=== PATIENT | female | born 1945 | race Caucasian/White ===

== ENCOUNTER 2019-04-09 07:29 | Day surgery (SDC) | payer MEDICARE, BC ==
[~2019-04-09 07:29] MED LIST: Midazolam 1 MG/ML 2 ML SDV ONE; fentaNYL 100 MCG/2 ML SDV ONE
[2019-04-09] MEDS ORDERED: fentaNYL 100 MCG/2 ML SDV IV ONE ×3 (07:30→08:36)
[2019-04-09] MEDS ORDERED: Midazolam 1 MG/ML 2 ML SDV IV ONE ×6 (07:30→08:39)
[2019-04-09] MEDS ORDERED: Dextrose 5%-0.45% NaCl 1,000 ML IV SCH (07:45)
[2019-04-09 11:37] VITALS: BP 140/70; PULSE 67
--- NOTE | 2019-04-09 14:25 | OR ---
DATE: 04/09/2019 PREOPERATIVE DIAGNOSES: Screening colonoscopy and positive Cologuard test. POSTOPERATIVE DIAGNOSES: Screening colonoscopy and positive Cologuard test. PROCEDURE: Total colonoscopy. ANESTHESIA: Conscious sedation. SPECIMEN: None. OPERATIVE FINDINGS: Moderate sigmoid diverticulosis, otherwise normal. RECOMMENDATION: Followup screening colonoscopy in 10 years; however, the patient will be 83 at that time, so most likely this should be for just symptoms only. PROCEDURE IN DETAIL: After adequate preparation, a colonoscope was inserted into the rectum. This was easily passed all the way to the cecum. Confirmation of the cecum was made by visualization of the ileocecal valve and the light shining through the right lower quadrant. A photograph of the valve was taken. The bowel prep was good. On withdrawal of the scope, the only abnormality noted was moderate sigmoid diverticulosis. Anal and rectal examination were normal. Air was suctioned from the colon, and the scope removed. [facility] /[id number]
== END 2019-04-09 10:30 | disposition home or self-care (01) ==
LOC: DL.ENDO 07:29
PROVIDERS: ATTEND Surgery
DX: R19.5 Other fecal abnormalities (principal); K57.30 Diverticulosis of large intestine without perforation or abscess without bleeding
CPT/HCPCS: G0121; J2250; J3010; J7042

== ENCOUNTER 2021-11-02 07:34 | Day surgery (SDC) | payer MEDICARE, BC ==
[~2021-11-02 07:34] MED LIST changes: +Acetaminophen 325 MG Tab PO PRN; +Acetaminophen/Codeine 300-30 MG Tab PO PRN; +Cataract Ophth Solution EYELF ONE; -Midazolam 1 MG/ML 2 ML SDV ONE; +Moxifloxacin 0.5% Ophth Soln 3 ML Bottle EYELF ONE; +Ondansetron 4 MG/2 ML SDV IVPUSH PRN; +Phenylephrine 10% Ophth Soln 5 ML Bot EYELF ONE; +Povidone-Iodine 5% Sterile Ophth Soln 30 ML Bottle EYELF ONE; +Proparacaine 0.5% Ophth Soln 15 ML Bottle EYELF ONE; +Timolol Maleate 0.5% Ophth Soln 5 ML Bottle EYELF ONE; +Tropicamide 1% Ophth Soln 15 ML Bottle EYELF ONE; -fentaNYL 100 MCG/2 ML SDV ONE
[2021-11-02] MEDS ORDERED: Midazolam 1 MG/ML 2 ML SDV IV ONE (07:35)
[2021-11-02] MEDS ORDERED: Dexamethasone 4 MG/ML SDV IV ONE (07:35)
[2021-11-02] MEDS ORDERED: Sodium Chloride 0.9% 10 ML Syringe IV ONE (07:35)
[2021-11-02] MEDS ORDERED: Tetracaine HCl/PF 0.5% 4 ML Bottle EYELF ONE (09:30)
[2021-11-02] MEDS ORDERED: Povidone-Iodine 5% Sterile Ophth Soln 30 ML Bottle EYELF ONE (09:30)
[2021-11-02] MEDS ORDERED: Lidocaine 1% 30 ML SDV ONE (09:30)
[2021-11-02] MEDS ORDERED: Apraclonidine 0.5% Ophth Soln 5 ML Bot EYELF ONE (09:31)
[2021-11-02] MEDS ORDERED: Diclofenac Sodium 0.1% Ophth Soln 5 ML Bottle EYELF ONE (09:31)
[2021-11-02] MEDS ORDERED: Dexamethasone/Neomycin/Polymyxin B Ophth Oint 3.5 GM Tube EYELF ONE (09:31)
[2021-11-02] MEDS ORDERED: Balanced Salt Solution Ophth Irrig 15 ML Bottle EYELF ONE (09:32)
[2021-11-02] MEDS ORDERED: Chondroitin Sulfate/Hyaluronate Sodium Ophth Inj 0.5 ML Syringe IOCULAR ONE ×2 (09:33)
[2021-11-02] MEDS ORDERED: Vancomycin 500 MG SDV EYELF ONE (09:33)
[2021-11-02] MEDS ORDERED: Dexamethasone 4 MG/ML SDV IOCULAR ONE (09:34)
[2021-11-02 12:46] VITALS: BP 133/84; PULSE 66
[2021-11-02] MEDS ORDERED: Sodium Chloride 0.9% 10 ML Syringe FLUSH PRN (12:49)
== END 2021-11-02 10:42 | disposition home or self-care (01) ==
LOC: DL.SDS 07:34
PROVIDERS: ATTEND Ophthalmology
DX: H25.812 Combined forms of age-related cataract, left eye (principal); E78.5 Hyperlipidemia, unspecified; I25.2 Old myocardial infarction; I10 Essential (primary) hypertension; F17.200 Nicotine dependence, unspecified, uncomplicated; Z91.048 Other nonmedicinal substance allergy status; Z98.890 Other specified postprocedural states; Z79.82 Long term (current) use of aspirin; Z79.899 Other long term (current) drug therapy
CPT/HCPCS: 66984; A9270; J1100; J2250; J3370; J3490; V2632

== ENCOUNTER 2021-11-16 07:08 | Day surgery (SDC) | payer MEDICARE, BC ==
[2021-11-16] MEDS ORDERED: Sodium Chloride 0.9% 10 ML Syringe IV ONE (07:09)
[2021-11-16] MEDS ORDERED: Midazolam 1 MG/ML 2 ML SDV IV ONE (07:09)
[2021-11-16] MEDS ORDERED: Dexamethasone 4 MG/ML SDV IV ONE (07:09)
[2021-11-16] MEDS ORDERED: Moxifloxacin 0.5% Ophth Soln 3 ML Bottle EYERT ONE (07:30)
[2021-11-16] MEDS ORDERED: Cataract Ophth Solution EYERT ONE (07:30)
[2021-11-16] MEDS ORDERED: Sodium Chloride 0.9% 10 ML Syringe FLUSH PRN (07:30)
[2021-11-16] MEDS ORDERED: Tropicamide 1% Ophth Soln 15 ML Bottle EYERT ONE (07:30)
[2021-11-16] MEDS ORDERED: Timolol Maleate 0.5% Ophth Soln 5 ML Bottle EYERT ONE (07:30)
[2021-11-16] MEDS ORDERED: Ondansetron 4 MG/2 ML SDV IVPUSH PRN (07:30)
[2021-11-16] MEDS ORDERED: Acetaminophen 325 MG Tab PO PRN (07:30)
[2021-11-16] MEDS ORDERED: Phenylephrine 10% Ophth Soln 5 ML Bot EYERT ONE (07:30)
[2021-11-16] MEDS ORDERED: Proparacaine 0.5% Ophth Soln 15 ML Bottle EYERT ONE (07:30)
[2021-11-16] MEDS ORDERED: Povidone-Iodine 5% Sterile Ophth Soln 30 ML Bottle EYERT ONE ×2 (07:30→08:34)
[2021-11-16] MEDS ORDERED: Acetaminophen/Codeine 300-30 MG Tab PO PRN (07:30)
[2021-11-16] MEDS ORDERED: Tetracaine HCl/PF 0.5% 4 ML Bottle EYERT ONE (08:33)
[2021-11-16] MEDS ORDERED: Apraclonidine 0.5% Ophth Soln 5 ML Bot EYERT ONE (08:34)
[2021-11-16] MEDS ORDERED: Lidocaine 1% 30 ML SDV ONE (08:34)
[2021-11-16] MEDS ORDERED: Balanced Salt Solution Ophth Irrig 500 ML Bottle IOCULAR ONE (08:35)
[2021-11-16] MEDS ORDERED: Chondroitin Sulfate/Hyaluronate Sodium Ophth Inj 0.5 ML Syringe IOCULAR ONE (08:35)
[2021-11-16] MEDS ORDERED: Vancomycin 500 MG SDV EYERT ONE (08:35)
[2021-11-16] MEDS ORDERED: Dexamethasone/Neomycin/Polymyxin B Ophth Oint 3.5 GM Tube EYERT ONE (08:35)
[2021-11-16] MEDS ORDERED: Diclofenac Sodium 0.1% Ophth Soln 5 ML Bottle EYERT ONE (08:35)
[2021-11-16] MEDS ORDERED: Dexamethasone 4 MG/ML SDV IOCULAR ONE (08:38)
[2021-11-16 11:17] VITALS: BP 104/48; PULSE 64
== END 2021-11-16 09:46 | disposition home or self-care (01) ==
LOC: DL.SDS 07:08
PROVIDERS: ATTEND Ophthalmology
DX: H25.811 Combined forms of age-related cataract, right eye (principal); I10 Essential (primary) hypertension; E78.5 Hyperlipidemia, unspecified; I25.2 Old myocardial infarction; Z90.89 Acquired absence of other organs; Z98.890 Other specified postprocedural states; Z79.82 Long term (current) use of aspirin; Z79.899 Other long term (current) drug therapy; Z87.891 Personal history of nicotine dependence
CPT/HCPCS: 00142; A9270-GY; J1100; J2250; J3370; J3490; V2632

== ENCOUNTER 2024-09-25 18:52 | Emergency (ER) | payer MEDICARE, BC ==
[2024-09-25 19:13] VITALS: BP 154/87; PULSE 99
[2024-09-25] MEDS: Fluorescein 1 MG Ophth Strip ONE (19:22)
[2024-09-25] MEDS: Fluorescein 1 MG Ophth Strip EYELF ONE (19:22)
[2024-09-25] MEDS ORDERED: Proparacaine 0.5% Ophth Soln 15 ML Bottle ONE (19:29)
[2024-09-25] MEDS: Proparacaine 0.5% Ophth Soln 15 ML Bottle EYELF ONE (19:35)
[2024-09-25] MEDS ORDERED: Erythromycin Base 0.5% Ophth Oint 3.5 GM Tube ONE (19:57)
[2024-09-25] MEDS: Erythromycin Base 0.5% Ophth Oint 3.5 GM Tube EYEBOTH ONE (20:00)
== END 2024-09-25 20:03 | disposition home or self-care (01) ==
LOC: DL.ED 18:52
DX: T15.92XA Foreign body on external eye, part unspecified, left eye, initial encounter (principal); I10 Essential (primary) hypertension; E78.00 Pure hypercholesterolemia, unspecified; Z79.82 Long term (current) use of aspirin; Z79.899 Other long term (current) drug therapy; W45.8XXA Other foreign body or object entering through skin, initial encounter
CPT/HCPCS: 99283; A9270-GY; J3490

== ENCOUNTER 2024-09-28 15:01 | Emergency (ER) | payer MEDICARE, BC ==
[2024-09-28 15:43] LABS: BASOPHILS PERCENT AUTO 0.6 % (0.0-1.0); EOSINOPHILS PERCENT AUTO 0.7 % (1.0-3.0); HEMATOCRIT 35.2 % (37.0-47.0); HEMOGLOBIN 12.4 g/dL (12.0-16.0); LYMPHOCYTES PERCENT AUTO 24.2 % (20.5-50.1); MEAN CORPUSCULAR HEMOGLOBIN 31.2 pg (27.0-34.0); MEAN CORPUSCULAR HGB CONC 35.2 g/dL (33.0-35.0); MEAN CORPUSCULAR VOLUME 88.7 fL (80-100); NEUTROPHILS PERCENT AUTO 62.5 % (42.2-75.2); PLATELET COUNT,PLT 402 10^3/uL (150-450); RED BLOOD CELL COUNT 3.97 10^6/uL (4.2-5.4); WHITE BLOOD CELL COUNT,WBC 7.1 10^3/uL (5.0-10.0)
[2024-09-28 15:44] VITALS: BP 180/84; PULSE 83
[2024-09-28 16:06] LABS: A/G RATIO 1.2; ALBUMIN 3.6 g/dL (3.4-5.0); BILIRUBIN TOTAL 0.4 mg/dL (0.2-1.0); BUN/CREATININE RATIO 19.7 (No establ ref range); CALCIUM 9.1 mg/dL (8.5-10.1); CREATININE 0.71 mg/dL (0.55-1.02); EST CRCL DRUG DOSING (CG) 49.98 mL/min; POTASSIUM,K 4.2 mmol/L (3.5-5.1); PROTEIN TOTAL,TP 6.5 g/dL (6.4-8.2)
[2024-09-28 16:15] LABS: ANION GAP 14.2 mEq/L (7-13)
[2024-09-28] MEDS: Iopamidol 612 MG/ML 100 ML Bottle IVPUSH ONE (16:46)
== END 2024-09-28 19:08 | disposition home or self-care (01) ==
LOC: DL.ED 15:01
DX: E87.1 Hypo-osmolality and hyponatremia (principal); I10 Essential (primary) hypertension; E78.00 Pure hypercholesterolemia, unspecified; Z79.82 Long term (current) use of aspirin; Z79.899 Other long term (current) drug therapy; W01.0XXA Fall on same level from slipping, tripping and stumbling without subsequent striking against object, initial encounter; Y93.01 Activity, walking, marching and hiking
CPT/HCPCS: 36415; 70450; 71260; 72125; 74177; 80053; 85025; 93005; 99284; Q9967; 93010; 99283